=== PATIENT | female | born 1940 | race Two or more races ===

== ENCOUNTER 2017-06-28 08:50 | Outpatient (CLI) | payer OTHER | END 2017-06-28 08:58 | disposition home or self-care (01) | LOC: RAD 08:50 | DX: M25.551 Pain in right hip (principal); M79.641 Pain in right hand; M79.644 Pain in right finger(s) ==

== ENCOUNTER 2018-01-06 11:19 | Outpatient (CLI) | payer OTHER | END 2018-01-06 12:00 | disposition home or self-care (01) | LOC: RAD 501 11:19 | DX: M54.2 Cervicalgia (principal); M54.6 Pain in thoracic spine; M54.5 Low back pain ==

== ENCOUNTER → 2018-08-05 | Outpatient (CLI) | payer OTHER | END | disposition home or self-care (01) | LOC: RAD 501 10:40 | DX: M54.5 Low back pain (principal); M54.6 Pain in thoracic spine ==

== ENCOUNTER 2020-02-13 13:09 | Outpatient (CLI) | payer OTHER | END 2020-02-13 13:15 | disposition home or self-care (01) | LOC: RAD 13:09 | PROVIDERS: ATTEND Internal Medicine Rheumatology | DX: M47.814 Spondylosis without myelopathy or radiculopathy, thoracic region (principal); M47.817 Spondylosis without myelopathy or radiculopathy, lumbosacral region ==

== ENCOUNTER 2020-07-08 08:49 | Outpatient (CLI) | payer OTHER | END 2020-07-08 08:55 | disposition home or self-care (01) | LOC: RAD 08:49 | PROVIDERS: ATTEND Orthopaedic Surgery | DX: S82.141D Displaced bicondylar fracture of right tibia, subsequent encounter for closed fracture with routine healing (principal) ==

== ENCOUNTER 2020-07-25 08:45 | Outpatient (CLI) | payer OTHER | END 2020-07-25 08:47 | disposition home or self-care (01) | LOC: NUCLEAR 08:45 | PROVIDERS: ATTEND Orthopaedic Surgery | DX: I87.2 Venous insufficiency (chronic) (peripheral) (principal); M79.604 Pain in right leg; M79.605 Pain in left leg ==

== ENCOUNTER → 2020-08-08 | Outpatient (CLI) | payer OTHER | END | disposition home or self-care (01) | LOC: RAD 10:41 | PROVIDERS: ATTEND Orthopaedic Surgery | DX: M25.571 Pain in right ankle and joints of right foot (principal); M79.671 Pain in right foot ==

== ENCOUNTER 2021-09-18 07:53 | Outpatient (CLI) | payer OTHER | END 2021-09-18 08:06 | disposition home or self-care (01) | LOC: RAD 07:53 | DX: I70.0 Atherosclerosis of aorta (principal) ==

== ENCOUNTER 2022-02-20 17:08 | Emergency (ER) | payer OTHER ==
[~2022-02-20] VITALS: Ht 144.8 cm; Wt 38.6 kg
[2022-02-20] MEDS ORDERED: TIROSINT50 MCG PO (17:39)
[2022-02-20] MEDS ORDERED: HYDRALAZINE HCL25 MG PO (17:39)
[2022-02-20] MEDS ORDERED: LIPITOR20 MG PO (17:39)
== END 2022-02-21 00:16 | disposition home or self-care (01) ==
LOC: ER 17:08
DX: M51.17 Intervertebral disc disorders with radiculopathy, lumbosacral region (principal); M47.27 Other spondylosis with radiculopathy, lumbosacral region